=== PATIENT | male | born 1990 | race Caucasian/White ===

== ENCOUNTER 2017-06-13 20:00 | Emergency (ER) | payer OTHER ==
[2017-06-13 20:07] VITALS: BP 138/68
--- NOTE | 2017-06-13 20:17 | UC ---
Laceration HPI - HPI Summary HPI Summary: 26 YEAR OLD MALE PRESENTS WITH LACERATION OF TIP OF RIGHT INDEX FINGER - History Of Current Complaint Chief Complaint: UCLaceration Stated Complaint: FINGER LACERATION Time Seen by Provider: 06/13/17 20:17 Hx Obtained From: Patient Laceration Location: Finger - RIGHT INDEX Mechanism Of Injury: Sharp Trauma Onset/Duration: Sudden Onset - Allergies/Home Medications Allergies/Adverse Reactions: Allergies Allergy/AdvReac Type Severity Reaction Status Date / Time No Known Allergies Allergy Verified 06/13/17 20:05 PMH/Surg Hx/FS Hx/Imm Hx Previously Healthy: Yes - Surgical History Surgical History: None - Social History Alcohol Use: Occasionally Substance Use Type: None Smoking Status (MU): Never Smoked Tobacco Review of Systems Constitutional: Negative Skin: Other - LACERATION TIP RIGHT INDEX FINGER Eyes: Negative ENT: Negative Respiratory: Negative Cardiovascular: Negative Gastrointestinal: Negative Genitourinary: Negative Motor: Negative Neurovascular: Negative Musculoskeletal: Negative Neurological: Negative Psychological: Negative All Other Systems Reviewed And Are Negative: Yes Physical Exam Triage Information Reviewed: Yes Vital Signs: Initial Vital Signs Temp 36.6 C 06/13/17 20:05 Pulse 67 06/13/17 20:05 Resp 16 06/13/17 20:05 BP 138/68 06/13/17 20:05 Pulse Ox 100 06/13/17 20:05 Vital Signs Reviewed: Yes Eye Exam: Normal ENT Exam: Normal Dental Exam: Normal Neck exam: Normal Neck: Positive: 1 Respiratory Exam: Normal Cardiovascular Exam: Normal Abdominal Exam: Normal Musculoskeletal Exam: Normal Neurological Exam: Normal Psychological Exam: Normal Skin: Positive: Other - LACERATION TIP OF RIGHT INDEX FINGER Laceration Course/Dx - Differential Dx - Laceration/Wound Provider Diagnoses: LACERATION TIP RIGHT INDEX FINGER Discharge - Discharge Plan Condition: Stable Disposition: HOME Prescriptions: Cephalexin CAP* [Keflex CAP*] 500 mg PO TID #30 cap Patient Education Materials: Laceration Without Closure (ED) Referrals: No Primary Care Phys,NOPCP [Primary Care Provider] -
[2017-06-13] MEDS ORDERED: Cephalexin CAP* 500 MG PO ONE (20:28)
== END 2017-06-13 21:02 | disposition home or self-care (01) ==
LOC: UCEAST 20:00
DX: S61.210A Laceration without foreign body of right index finger without damage to nail, initial encounter (principal); W45.8XXA Other foreign body or object entering through skin, initial encounter; Y92.9 Unspecified place or not applicable
CPT/HCPCS: 12001; 99212; A9270-GY; G0463